=== PATIENT | male | born 1950 | race Caucasian/White ===

== ENCOUNTER → 2017-01-25 | Outpatient (CLI) | payer OTHER | END | disposition home or self-care (01) | LOC: GMAH 11:39 | PROVIDERS: ATTEND Family Medicine | DX: Z12.5 Encounter for screening for malignant neoplasm of prostate (principal); E78.2 Mixed hyperlipidemia; I10 Essential (primary) hypertension | CPT/HCPCS: 84443; 84550; G0103 ==

== ENCOUNTER → 2017-08-02 | Outpatient (CLI) | payer OTHER | END | disposition home or self-care (01) | LOC: GMAH 10:36 | PROVIDERS: ATTEND Family Medicine | DX: R97.20 Elevated prostate specific antigen [PSA] (principal) ==

== ENCOUNTER → 2018-02-12 | Outpatient (CLI) | payer OTHER | LOC: GMAH 10:41 | PROVIDERS: ATTEND Family Medicine | DX: I10 Essential (primary) hypertension (principal); E78.2 Mixed hyperlipidemia; E74.39 Other disorders of intestinal carbohydrate absorption; Z12.5 Encounter for screening for malignant neoplasm of prostate | CPT/HCPCS: 84443; 84550; G0103 ==

== ENCOUNTER → 2018-08-08 | Outpatient (CLI) | payer OTHER | LOC: GMAH 10:43 | PROVIDERS: ATTEND Family Medicine | DX: R97.20 Elevated prostate specific antigen [PSA] (principal) ==

== ENCOUNTER → 2019-02-18 | Outpatient (CLI) | payer OTHER | LOC: GMAH 11:08 | PROVIDERS: ATTEND Family Medicine | DX: I10 Essential (primary) hypertension (principal); E78.2 Mixed hyperlipidemia; Z12.5 Encounter for screening for malignant neoplasm of prostate ==

== ENCOUNTER → 2019-03-03 | Outpatient (CLI) | payer OTHER ==
--- NOTE | 2019-03-03 14:21 | MAM ---
EXAM DESCRIPTION: 3D Diagnostic, Bilateral (accession [id number]), Breast,Bilateral (accession [id number]): Ultrasound CLINICAL HISTORY: 68 yearsMaleBreast lump noticed lump in some tenderness behind the right nipple [place]. No personal or family history of breast cancer. No history of trauma. Medication change for high blood pressure after noticing the breast lump . COMPARISON: None. TECHNIQUE: Bilateral LM, CC, and MLO projection full-field images, digital mammographic tomosynthesis technique. Bilateral 2-D digital full-field MLO images. CAD not available . Transcutaneous scanning of the bilateral breasts utilizing kahn-scale and Doppler modes. Scanning performed by the director of religious activities and Dr. Mckeon. FINDINGS: The breast parenchymal density pattern is: Almost entirely fatty. No skin thickening or nipple retraction asymmetric increased density of tissue in the retroareolar right breast compared to the left. No abnormal calcifications. Ultrasound: Decreased echoes in the right breast retroareolar tissues compared to the left. No dominant soft tissue mass. No distinct cyst. No large calcifications. No parenchymal edema or abnormal vascularity. IMPRESSION: BI-RADS CATEGORY: 3 - PROBABLY BENIGN. Management: Short interval (6-month) follow-up right breast diagnostic digital mammography and targeted right breast ultrasound, or continued clinical surveillance. The FINDINGS and the FOLLOW-UP plan were reviewed in person with the patient after the examination. Written communication explaining the IMPRESSION and FOLLOW-UP will be mailed to the patient and referring care provider. Electronically signed by: Ronald Mckeon MD 03/03/2019 2:19 PM CDT
== END ==
LOC: US 09:00
PROVIDERS: ATTEND Family Medicine
DX: N64.89 Other specified disorders of breast (principal)

== ENCOUNTER → 2019-05-23 | Outpatient (CLI) | payer OTHER | LOC: GMA MATASK 12:19 | PROVIDERS: ATTEND Family Medicine | DX: I10 Essential (primary) hypertension (principal) ==

== ENCOUNTER → 2020-10-12 | Outpatient (CLI) | payer MEDICARE | LOC: GMAM 12:02 | PROVIDERS: ATTEND Family Medicine | DX: Z12.5 Encounter for screening for malignant neoplasm of prostate (principal); E78.2 Mixed hyperlipidemia | CPT/HCPCS: 84443; 84550; G0103 ==